=== PATIENT | male | born 1980 | race Caucasian/White ===

== ENCOUNTER 2023-10-26 08:05 | Day surgery (SDC) | payer BC ==
[~2023-10-26] VITALS: Ht 190.5 cm; Wt 125.0 kg
[~2023-10-26 08:05] MED LIST: BACTRIM DS TAB1 EACH PO; BISOPROLOL FUMAR5 MG PO; IBLOOD GLUCOSE TEST STRIP 1 EA TEST VI PRN; LACTATED RINGER'S 1,000 ML IV SCH; LIDOCAINE HCL 1% 5 ML SDV INJ ONE; MIDAZOLAM HCL 5 MG/5 ML VIAL IV PRN; TRIAMCINOLONE A15 GM TOP; VITAMIN D250 MC1 PO; fentaNYL citrate 100 MCG/2 ML VIAL IV PRN; propofoL 200 MG/20 ML VIAL ONE
[2023-10-26 08:20] VITALS: BP 155/85
[2023-10-26] MEDS ORDERED: LACTATED RINGER'S 1,000 ML IV ONE (10:02)
--- NOTE | 2023-10-26 10:38 | NUR ---
10/26/23 1038 Sheets,Ailyn 1012 PT ARRIVED TO PACU TALKING WITH HIS EYES CLOSED. RN TRYING TO REORIENT PT TO PACU. 1013 O2 MASK REMOVED, RESP EVEN AND UNLABORED. PT DNEIS CONCERNS AND EASILY FALLS ASLEEP. 1020 PT WOKE EASILY AND IS REORIENTED TO PACU. PT COUGHING OFF AND ON AND IS ENCOUARGED TO PASS GAS NEEDED. WHEN ASLEEP O2 LOW 90S.
[2023-10-26 10:54] VITALS: BP 141/86
--- NOTE | 2023-10-26 11:30 | OR ---
[facility] [address] [place], [place] [address] Signed DATE OF OPERATION: 10/26/2023 SURGEON: Estee Brice MD PREOPERATIVE DIAGNOSES: 1. Maternal aunt with colon cancer in her 60s. 2. Personal history of colonic polyps in August 2023. 3. Tattoo in distal right colon. 4. Internal hemorrhoids. POSTOPERATIVE DIAGNOSES: 1. 7 mm sessile polyp in distal right colon (snare, hot biopsy, clip). 2. 3 mm polyp at 100 cm in transverse/left colon. 3. 3 mm polyp at 55 cm in left colon. 4. 5 mm sessile polyp at 16 cm in the rectum. 5. 5 mm polyp at 7 cm in rectum. 6. Minimal internal hemorrhoids. PROCEDURE: Colonoscopy with snare polypectomy, hot biopsy and application of clip. ESTIMATED BLOOD LOSS: None. INDICATIONS: Nain is a 43-year-old gentleman, who came in August of this year for his initial screening colonoscopy. His maternal aunt had colon cancer in her 60s. Nain went through multiple biopsies. He had a 3 cm sessile tubulovillous adenomatous polyp in the distal right colon. We took that out piecemeal x3 with our snare and placed a tattoo. We know he has just a little bit of polyp on the posterior edge of that area that needs to be removed. He had one small hyperplastic polyp removed and also several small tubular adenomatous polyps removed all below 10 mm in diameter. We know he has a little bit of internal hemorrhoid tissue as well. After meeting with Nain and his in the office, he understands he needs to come back in a short interval so we can finish up the polyp in the distal right colon. He understands these types of polyps grow and become cancers. He is very fortunate that he came at this time. He knows there is risk including, but not limited to gas bloating, crampy abdominal pain, bleeding, perforation requiring surgery, and missed diagnosis. He is going to repeat our same bowel prep, which he did well previously. Also because of his full face, mustache and bailey along with 15 beers a week and his significant anxiety and obsessive-compulsive disorder, we Electronically Signed By: ESTEE BRICE MD 10/26/23 1130 PATIENT NAME: NAIN YOO OPERATIVE REPORT DATE OF : 76 REPORT #: [id number] PHYSICIAN: ESTEE BRICE MD PCP: BECKY ANTOINE PAC REPORT IS CONFIDENTIAL AND NOT TO BE RELEASED WITHOUT AUTHORIZATION [facility] [address] [place], [place] [address] Signed are going to ask for monitored anesthesia care once again with propofol infusion. That worked out very nicely with his 1st procedure. In fact, today he required propofol to keep him sedated. He said that his will take him home afterwards. He had expressed understanding and wished to proceed. PROCEDURE IN DETAIL: Nain was taken into our endoscopy suite and placed in the left lateral decubitus position. He was given monitored anesthesia care with propofol infusion per our nurse tearer press clipping. A digital rectal exam was performed. He has good sphincter tone. Not much in the way of any external hemorrhoids. No masses. His prostate is becoming enlarged and the left is more prominent than the right. The adult colonoscope was introduced and advanced all around into the distal right colon. We could see the tattoo easily and also a little bit of 7 mm sessile polyp remaining on the proximal portion of that tattoo. We removed it with a combination of snare and hot biopsy forceps. It was a little deep and bleeding just a little, so we went ahead and placed a clip. We had taken several pictures throughout for photodocumentation. The other polyps were quite small and these were removed with the hot biopsy forceps. He has no diverticulosis. Upon retroflexion of the scope in the rectum, he has just minimal internal hemorrhoid tissue. After this, the gas was suctioned out colonoscope removed. Nain tolerated the procedure quite well. RECOMMENDATIONS: I will see Nain back in my office in 7 to 14 days to review his results. He probably should consider another short interval endoscopy somewhere around 12 to 24 months. Estee Brice MD ALB/MODL /[id number] cc: MD Becky Muhammad PA-C Electronically Signed By: ESTEE BRICE MD 10/26/23 1130 PATIENT NAME: NAIN YOO OPERATIVE REPORT DATE OF : 76 REPORT #: [id number] PHYSICIAN: ESTEE BRICE MD PCP: BECKY ANTOINE [facility] REPORT IS CONFIDENTIAL AND NOT TO BE RELEASED WITHOUT AUTHORIZATION [address] [address] Signed Copies: ETSEE BRICE MD ~ Electronically Signed By: ESTEE BRICE MD 10/26/23 1130 PATIENT NAME: NAIN YOO DARYL OPERATIVE REPORT DATE OF : 76 REPORT #: [id number] PHYSICIAN: ESTEE BRICE MD PCP: BECKY ANTOINE PAC REPORT IS CONFIDENTIAL AND NOT TO BE RELEASED WITHOUT AUTHORIZATION
--- NOTE | 2023-10-31 20:17 | PATH ---
[facility] [address] [facility] [place], [place] [address] Signed SPECIMEN(S): A DISTAL ASCENDING POLYP SPECIMEN(S): B DISTAL DESCENDING POLYP, 100 CM SPECIMEN(S): C DESCENDING POLYP, 55 CM SPECIMEN(S): D RECTAL POLYP, 16 CM SPECIMEN(S): E RECTAL POLYP, 7 CM SPECIMEN SOURCE: A. DISTAL ASCENDING POLYP B. DISTAL DESCENDING POLYP, 100 CM C. DESCENDING POLYP, 55 CM D. RECTAL POLYP, 16 CM E. RECTAL POLYP, 7 CM CLINICAL HISTORY: Hx of colon polyps; hx right colon distal. FINAL PATHOLOGIC DIAGNOSIS: A. Distal ascending polyp: - Tubular adenoma (multiple fragments). B. Distal descending polyp, 100 cm: - Hyperplastic polyp (one fragment). C. Descending polyp: - Benign colonic mucosa with hyperplastic features (one fragment). D. Rectal polyp, 16 cm: - Benign colonic mucosa with hyperplastic features (one fragment). E. Rectal polyp, 7 cm: - Hyperplastic polyp (one fragment). JVR:yobani MICROSCOPIC EXAMINATION: Histologic sections of all submitted blocks are examined by light microscopy. These findings, together with the gross examination, support the pathologic diagnosis. GROSS DESCRIPTION: A. The specimen, labeled and designated "Yoo, distal ascending polyp," is received in formalin and consists of five shahid soft tissue fragments, ranging from 0.1-0.3 cm. Entirely submitted in (A1). B. The specimen, labeled and designated "Yoo, distal descending polyp, 100 cm," is received in formalin and consists of one shahid soft tissue fragment, 0.2 cm. Entirely submitted in (B1). PATIENT NAME: NAIN YOO PATHOLOGY DATE OF : 76 REPORT #: [id number] PHYSICIAN: [place] [employer] [place] PCP: BECKY ANTOINE PAC REPORT IS CONFIDENTIAL AND NOT TO BE RELEASED WITHOUT AUTHORIZATION [facility] [address] [place], [place] [address] Signed C. The specimen, labeled and designated "Segundo, descending polyp, 55 cm," is received in formalin and consists of one shahid soft tissue fragment, 0.2 cm. Entirely submitted in (C1). D. The specimen, labeled and designated "Yoo, rectal polyp, 16 cm," is received in formalin and consists of two shahid soft tissue fragments, ranging from 0.1-0.2 cm. Entirely submitted in (D1). E. The specimen, labeled and designated "Segundo, rectal polyp, 7 cm," is received in formalin and consists of one shahid soft tissue fragment, 0.3 cm. Entirely submitted in (E1). VB (under the direct supervision of a pathologist) The Gross Description was prepared using a voice recognition system. The report was reviewed for accuracy; however, sound-alike word errors, addition and/or deletions may occur. If there is any question about this report, please contact Client Services. PERFORMING LABORATORY: Technical component was performed by [email or web address], [address] [place] [id number] (CLIA# [id number]). Professional interpretation was performed by [facility], [address] [place] [id number] (CLIA#: [id number]). Diagnostician: Humberto Quiroga MD Pathologist Electronically Signed 10/31/2023 Copies: ~ PATIENT NAME: NAIN YOO DARYL PATHOLOGY DATE OF : 76 REPORT #: [id number] PHYSICIAN: NANCY NEWELL PCP: BECKY ANTOINE PAC REPORT IS CONFIDENTIAL AND NOT TO BE RELEASED WITHOUT AUTHORIZATION
== END 2023-10-26 11:03 | disposition home or self-care (01) ==
LOC: DS 08:05
PROVIDERS: ATTEND Colon & Rectal Surgery
PROC: 0DBE8ZX Excision of Large Intestine, Via Natural or Artificial Opening Endoscopic, Diagnostic (ICD-10-PCS; principal; 2023-10-26 08:50)
DX: Z12.11 Encounter for screening for malignant neoplasm of colon (principal); D12.2 Benign neoplasm of ascending colon; K63.5 Polyp of colon; K62.1 Rectal polyp; K64.8 Other hemorrhoids; Z80.0 Family history of malignant neoplasm of digestive organs; I10 Essential (primary) hypertension; E78.5 Hyperlipidemia, unspecified; F41.1 Generalized anxiety disorder; F17.210 Nicotine dependence, cigarettes, uncomplicated; F42.9 Obsessive-compulsive disorder, unspecified; Z79.899 Other long term (current) drug therapy
CPT/HCPCS: 00811; J2704; J7121

== ENCOUNTER 2025-05-08 12:00 | Day surgery (SDC) | payer BC ==
[~2025-05-08] VITALS: Ht 193 cm; Wt 115.9 kg
[~2025-05-08 12:00] MED LIST changes: +LIPITOR20 MG PO; -propofoL 200 MG/20 ML VIAL ONE
[2025-05-08 12:29] VITALS: BP 142/94
[2025-05-08 12:30] VITALS: BP 142/94
[2025-05-08] MEDS ORDERED: MIDAZOLAM HCL 5 MG/5 ML VIAL ONE ×2 (14:12→14:32)
[2025-05-08] MEDS ORDERED: fentaNYL citrate 100 MCG/2 ML VIAL ONE (14:12)
--- NOTE | 2025-05-08 15:01 | NUR ---
05/08/25 1501 Priscilla Perales 1456-PATIENT ARRIVED TO PACU DROWSY DENIES PAIN OR NAUSEA 2L NC RR EVEN. ABDOMEN SOFT IVF INFUSING ENCOURAGED TO PASS GAS. 1500-PATIENT AWAKE AND TALKING DR KENNEDY AT BEDSIDE IVF INFUSING. SR HR 70'S. PLACED ON RA
[2025-05-08 15:32] VITALS: BP 134/64
--- NOTE | 2025-05-10 14:31 | OR ---
[facility] [address] [place], [place] [address] Signed DATE OF OPERATION: 05/08/2025 SURGEON: Justin Kennedy MD PREOPERATIVE DIAGNOSIS: History of multiple polyps and one malignant polyp, 2023 (Dr. Eliezer Albright). POSTOPERATIVE DIAGNOSIS: Small polyps x3. PROCEDURE: Total colonoscopy to cecum with cold morcellation polypectomy x3. ANESTHESIA: Intravenous sedation, fentanyl 150 mcg, and Versed 10 mg. INDICATION: This 45-year-old white man is a patient of DELICIA Rodarte and has a history of polyp resection x6 by Dr. Eliezer Albright approximately a year ago. One of the polyps was malignant and margins were negative. The larger polyp was said to be rather large. He has no family history of colon cancer and no symptoms of bleeding, diarrhea, or constipation. He is admitted at this time to undergo short-term surveillance colonoscopy. He understands the risk of bleeding, infection, and perforation. FINDINGS: The prep was adequate. Complete colonoscopy was then taken of the cecum. There were three small polyps, one in the left colon and two in the rectosigmoid, all excised with cold morcellation technique. The remaining colon was otherwise normal. DESCRIPTION OF PROCEDURE: The patient was brought to the endoscopy suite and placed in lateral decubitus position, given intravenous sedation a point of slurred speech and nystagmus. Digital rectal examination was normal. An Olympus video colonoscope was passed in the rectum and manipulated throughout the colon ultimately intubating the cecum itself. The ileocecal valve was normal. Scope was withdrawn and examination throughout with the use of irrigation showed no abnormality into the proximal descending colon where a small adenomatous polyp was noted. This was excised with cold morcellation technique. Further withdrawal showed no abnormality into the rectosigmoid where two small polyps, possibly hyperplastic were Electronically Signed By: JUSTIN KENNEDY MD 05/10/25 1431 PATIENT NAME: NAIN YOO OPERATIVE REPORT DATE OF : 76 REPORT #: [id number] PHYSICIAN: JUSTIN KENNEDY MD PCP: BECKY ANTOINE PAC REPORT IS CONFIDENTIAL AND NOT TO BE RELEASED WITHOUT AUTHORIZATION [facility] [address] [place], [place] [address] Signed identified. Both were excised with cold morcellation technique. The scope was removed. The patient was taken to the recovery room in good condition having suffered no complication. CONCLUDING DIAGNOSIS: Small polyps x3. PLAN: Recommend repeat colonoscopy in 3-5 years based on his clinical history and current status of polyps, sooner if symptoms should develop of course. MD GILDA Quintero/GABRIEL /[id number] cc: Becky Antoine PA-C Copies: ~ Electronically Signed By: JUSTIN KENNEDY MD 05/10/25 1431 PATIENT NAME: NAIN YOO OPERATIVE REPORT DATE OF : 76 REPORT #: [id number] PHYSICIAN: JUSTIN KENNEDY MD PCP: BECKY ANTOINE PAC REPORT IS CONFIDENTIAL AND NOT TO BE RELEASED WITHOUT AUTHORIZATION
== END 2025-05-08 15:40 | disposition home or self-care (01) ==
LOC: OPS 12:00 → DS 12:01 → OPS 13:00 → DS 13:00 → OPS 15:40
PROVIDERS: ATTEND Surgery
PROC: 0DBN8ZX Excision of Sigmoid Colon, Via Natural or Artificial Opening Endoscopic, Diagnostic (ICD-10-PCS; 2025-05-08)
PROC: 0DBM8ZX Excision of Descending Colon, Via Natural or Artificial Opening Endoscopic, Diagnostic (ICD-10-PCS; principal; 2025-05-08 13:00)
DX: Z12.11 Encounter for screening for malignant neoplasm of colon (principal); K63.5 Polyp of colon; K63.89 Other specified diseases of intestine; I10 Essential (primary) hypertension; E78.00 Pure hypercholesterolemia, unspecified; F17.210 Nicotine dependence, cigarettes, uncomplicated; Z79.899 Other long term (current) drug therapy; Z86.0100 Personal history of colon polyps, unspecified; Z85.038 Personal history of other malignant neoplasm of large intestine
CPT/HCPCS: 88305; 99153; G0500; J2250; J3010; J7121